=== PATIENT | female | born 1955 | race Caucasian/White ===

== ENCOUNTER 2019-10-23 19:59 | Inpatient (IN) ==
[2019-10-23] MEDS ORDERED: Isovue-370 500 ML BOTTLE IVP ONE (20:33)
[2019-10-23 20:43] LABS: Basophils % 0.1 %; Hematocrit 40.6 % (35.3-44.9); Hemoglobin 12.8 g/dL (11.5-15.4); Immature Granulocytes % 1.1 % (0-4); Lymphocytes # 0.7 K/mcL (0.6-4.6); Lymphocytes % 5.5 %; Mean Corpuscular HGB Conc 31.5 g/dL (31.6-35.5); Mean Corpuscular Hemoglobin 27.9 pg (28.0-33.3); Mean Corpuscular Volume 88.6 fL (83.0-100.0); Monocytes # 0.3 K/mcL (0.0-1.3); Monocytes % 2.4 %; Neutrophils # 11.2 K/mcL (1.6-8.9); Platelet Count 255 K/mcL (140-400); Red Blood Count 4.58 M/mcL (3.82-4.97); Red Cell Distribution Width 15.8 % (11.5-14.5); Segmented Neutrophils % 90.9 %; White Blood Count 12.3 K/mcL (4.3-11.1)
[2019-10-23] MEDS ORDERED: 0.9 % Sodium Chloride 500 ML IVC ONE (20:54)
[2019-10-23 21:08] LABS: BUN/Creatinine Ratio 29 (6-26); Blood Urea Nitrogen 29 mg/dL (8-23); Calcium 9.6 mg/dL (8.6-10.3); Carbon Dioxide 25 mEq/L (23-29); Chloride 101 mEq/L (98-107); Glucose 157 mg/dL (70-105); Osmolality,Calculated 291 (280-300); Potassium 4.2 mEq/L (3.5-5.1); Sodium 136 mEq/L (136-145); Troponin I < 0.03 ng/mL (< 0.04); eGFR For African Americans > 60 (> 60); eGFR For Non-African Americans 55 (> 60)
[2019-10-23] MEDS ORDERED: cefTRIAXone 1,000 MG in Water for inj. (sterile) 10 ML IVP ONE (21:41)
[2019-10-23] MEDS ORDERED: Azithromycin 500 MG in 0.9 % Sodium Chloride 250 ML IVPB ONE (21:41)
[2019-10-23] MEDS ORDERED: Naloxone 0.4 MG/ML INJ IVP PRN (22:13)
[2019-10-23] MEDS ORDERED: Ondansetron ODT 4 MG TAB.RAPDIS SL PRN (22:13)
[2019-10-24] MEDS: levoFLOXacin 750 MG/150 ML 750 MG/150 ML BAG IVPB SCH (01:31)
[2019-10-24] MEDS ORDERED: *HR* OxyCODONE/APAP 10/325 TABLET PO ONE (04:03)
[2019-10-24] MEDS: Pregabalin 50 MG CAPSULE PO SCH ×4 (04:31→22:10)
[2019-10-24] MEDS: *HR* Heparin 5,000 UNIT/ML VIAL SQ SCH ×2 (06:01→16:58)
[2019-10-24] MEDS ORDERED: *HR* Labetalol 20 MG/4 ML SYRINGE IVP ONE (06:07)
[2019-10-24] MEDS ORDERED: *HR* Labetalol 20 MG/4 ML SYRINGE IVP PRN (12:00)
[2019-10-24 12:11] LABS: Bilirubin,Urine Negative (Negative); Blood,Urine Negative (Negative); Clarity,Urine Clear (Clear); Color,Urine Yellow (Yellow); Glucose,Urine (UA) Normal (Normal); Ketones,Urine Negative (Negative); Leukocyte Esterase,Urine Negative (Negative); Nitrite,Urine Positive (Negative); PH,Urine 6.5 pH Units (5.0-8.0); Protein,Urine Negative (Neg-Trace); Urobilinogen,Urine Normal (Normal)
[2019-10-24 12:14] LABS: Bacteria,Urine None Seen per hpf (None-Few); Hyaline Casts,Urine None Seen per lpf (None-Few); RBC,Urine 0-3 per hpf (0-3); Squamous Epithelial Cell,Urine Many per lpf (None-Few); WBC,Urine 0-3 per hpf (0-3)
[2019-10-24] MEDS: *HR* OxyCODONE/APAP 10/325 TABLET PO PRN ×2 (12:59→22:11)
[2019-10-24 16:05] LABS: Basophils % 0.2 %; Eosinophils % 0.2 %; Hemoglobin 12.5 g/dL (11.5-15.4); Lymphocytes # 1.4 K/mcL (0.6-4.6); Mean Corpuscular HGB Conc 31.3 g/dL (31.6-35.5); Mean Corpuscular Volume 89.5 fL (83.0-100.0); Monocytes # 0.6 K/mcL (0.0-1.3); Monocytes % 4.5 %; Neutrophils # 10.3 K/mcL (1.6-8.9); Platelet Count 254 K/mcL (140-400); Red Blood Count 4.47 M/mcL (3.82-4.97); Red Cell Distribution Width 15.9 % (11.5-14.5); Segmented Neutrophils % 83.1 %; White Blood Count 12.5 K/mcL (4.3-11.1)
[2019-10-24 16:26] LABS: Calcium 9.5 mg/dL (8.6-10.3)
[2019-10-24] MEDS: carvediloL 6.25 MG TABLET PO SCH (16:58)
[2019-10-24] MEDS: Morphine Sulfate 2 MG/ML SYRINGE IVP PRN (22:11)
[2019-10-25] MEDS ORDERED: Acetaminophen 325 MG TABLET PO ONE (04:35)
[2019-10-25 04:40] LABS: Basophils % 0.2 %; Eosinophils % 0.3 %; Hematocrit 40.2 % (35.3-44.9); Hemoglobin 13.1 g/dL (11.5-15.4); Immature Granulocytes % 1.2 % (0-4); Lymphocytes # 1.7 K/mcL (0.6-4.6); Lymphocytes % 15.4 %; Mean Corpuscular HGB Conc 32.6 g/dL (31.6-35.5); Mean Corpuscular Hemoglobin 29.3 pg (28.0-33.3); Mean Corpuscular Volume 89.9 fL (83.0-100.0); Mean Platelet Volume 11.6 fL (9.4-12.4); Monocytes # 0.5 K/mcL (0.0-1.3); Monocytes % 4.1 %; Neutrophils # 8.8 K/mcL (1.6-8.9); Platelet Count 242 K/mcL (140-400); Red Blood Count 4.47 M/mcL (3.82-4.97); Red Cell Distribution Width 16.1 % (11.5-14.5); Segmented Neutrophils % 78.8 %; White Blood Count 11.1 K/mcL (4.3-11.1)
[2019-10-25 04:58] LABS: Calcium 9.4 mg/dL (8.6-10.3); Magnesium 1.6 mg/dL (1.6-2.6); Potassium 3.7 mEq/L (3.5-5.1)
[2019-10-25] MEDS: Famotidine 20 MG/2 ML VIAL IVP SCH ×2 (06:39→17:43)
[2019-10-25] MEDS: *HR* Enoxaparin 40 MG/0.4 ML SYRINGE SQ SCH (06:41)
[2019-10-25] MEDS: carvediloL 6.25 MG TABLET PO SCH ×2 (08:04→17:43)
[2019-10-25] MEDS: Pregabalin 50 MG CAPSULE PO SCH ×3 (08:04→22:34)
[2019-10-25] MEDS: *HR* OxyCODONE/APAP 10/325 TABLET PO PRN ×2 (08:05→22:35)
[2019-10-25] MEDS: Morphine Sulfate 2 MG/ML SYRINGE IVP PRN ×2 (11:30→22:35)
[2019-10-25] MEDS: levoFLOXacin 750 MG/150 ML 750 MG/150 ML BAG IVPB SCH (22:34)
[2019-10-26 02:04] LABS: Basophils # 0.1 K/mcL (0.0-0.2); Basophils % 0.6 %; Eosinophils % 0.5 %; Hematocrit 40.8 % (35.3-44.9); Hemoglobin 12.8 g/dL (11.5-15.4); Immature Granulocytes % 1.5 % (0-4); Lymphocytes # 1.4 K/mcL (0.6-4.6); Lymphocytes % 17.1 %; Mean Corpuscular HGB Conc 31.4 g/dL (31.6-35.5); Mean Corpuscular Volume 89.3 fL (83.0-100.0); Mean Platelet Volume 11.6 fL (9.4-12.4); Monocytes # 0.4 K/mcL (0.0-1.3); Monocytes % 4.6 %; Neutrophils # 6.2 K/mcL (1.6-8.9); Platelet Count 180 K/mcL (140-400); Red Blood Count 4.57 M/mcL (3.82-4.97); Segmented Neutrophils % 75.7 %; White Blood Count 8.1 K/mcL (4.3-11.1)
[2019-10-26 02:23] LABS: BUN/Creatinine Ratio 22 (6-26); Blood Urea Nitrogen 21 mg/dL (8-23); Calcium 8.5 mg/dL (8.6-10.3); Carbon Dioxide 26 mEq/L (23-29); Chloride 98 mEq/L (98-107); Glucose 109 mg/dL (70-105); Magnesium 1.4 mg/dL (1.6-2.6); Osmolality,Calculated 288 (280-300); Potassium 3.4 mEq/L (3.5-5.1); Sodium 137 mEq/L (136-145); eGFR For African Americans > 60 (> 60); eGFR For Non-African Americans > 60 (> 60)
[2019-10-26] MEDS: Famotidine 20 MG/2 ML VIAL IVP SCH ×2 (06:08→17:35)
[2019-10-26] MEDS: *HR* OxyCODONE/APAP 10/325 TABLET PO PRN ×2 (06:08→15:37)
[2019-10-26] MEDS: *HR* Enoxaparin 40 MG/0.4 ML SYRINGE SQ SCH (06:09)
[2019-10-26] MEDS: carvediloL 6.25 MG TABLET PO SCH ×2 (09:05→17:35)
[2019-10-26] MEDS: predniSONE 20 MG TABLET PO SCH (09:06)
[2019-10-26] MEDS: Pregabalin 50 MG CAPSULE PO SCH ×3 (09:06→20:49)
[2019-10-26] MEDS ORDERED: Aminoglycoside Consult 1 EACH MC ONE (15:12)
[2019-10-26] MEDS ORDERED: Furosemide 40 MG TABLET PO PRN (17:49)
[2019-10-26] MEDS: Morphine Sulfate 2 MG/ML SYRINGE IVP PRN (19:35)
[2019-10-26] MEDS: Baclofen 10 MG TABLET PO SCH (20:49)
[2019-10-26] MEDS: Sucralfate 1 GM TABLET PO SCH (20:49)
[2019-10-26] MEDS ORDERED: Latanoprost 2.5 ML BOTTLE BOTH EYES SCH (21:00)
[2019-10-26] MEDS: Ammonium Lactate 30 APPL/225 GM BOTTLE TP SCH (21:37)
[2019-10-27 01:17] LABS: Basophils % 0.4 %; Hematocrit 36.2 % (35.3-44.9); Hemoglobin 11.6 g/dL (11.5-15.4); Immature Granulocytes % 2.7 % (0-4); Lymphocytes # 0.8 K/mcL (0.6-4.6); Lymphocytes % 11.6 %; Mean Corpuscular Hemoglobin 28.4 pg (28.0-33.3); Mean Corpuscular Volume 88.7 fL (83.0-100.0); Mean Platelet Volume 10.7 fL (9.4-12.4); Monocytes # 0.3 K/mcL (0.0-1.3); Monocytes % 4.8 %; Neutrophils # 5.7 K/mcL (1.6-8.9); Platelet Count 202 K/mcL (140-400); Red Blood Count 4.08 M/mcL (3.82-4.97); Red Cell Distribution Width 15.7 % (11.5-14.5); Segmented Neutrophils % 80.5 %; White Blood Count 7.1 K/mcL (4.3-11.1)
[2019-10-27 01:38] LABS: BUN/Creatinine Ratio 23 (6-26); Blood Urea Nitrogen 25 mg/dL (8-23); Calcium 8.5 mg/dL (8.6-10.3); Carbon Dioxide 25 mEq/L (23-29); Chloride 101 mEq/L (98-107); Glucose 185 mg/dL (70-105); Magnesium 1.8 mg/dL (1.6-2.6); Osmolality,Calculated 291 (280-300); Potassium 3.8 mEq/L (3.5-5.1); Sodium 136 mEq/L (136-145); eGFR For African Americans > 60 (> 60); eGFR For Non-African Americans 52 (> 60)
[2019-10-27] MEDS: Sucralfate 1 GM TABLET PO SCH (07:50)
[2019-10-27] MEDS: carvediloL 6.25 MG TABLET PO SCH (07:50)
[2019-10-27] MEDS: Pregabalin 50 MG CAPSULE PO SCH (07:50)
[2019-10-27] MEDS: predniSONE 20 MG TABLET PO SCH (07:50)
[2019-10-27] MEDS: Baclofen 10 MG TABLET PO SCH (07:50)
[2019-10-27] MEDS: *HR* Enoxaparin 40 MG/0.4 ML SYRINGE SQ SCH (07:50)
[2019-10-27] MEDS ORDERED: Cholecalciferol (D-3) 1,000 UNIT (25MCG) TABLET PO SCH (09:00)
[2019-10-27] MEDS: Ammonium Lactate 30 APPL/225 GM BOTTLE TP SCH (11:07)
[2019-10-27 11:59] VITALS: BP 122/74
== END 2019-10-27 15:13 | disposition home or self-care (01) | DRG 194 ==
LOC: EMEROOARM 19:59 → 2NENU 19:59 → SUATTDRO 22:08 → 2NENU 23:07 → 2ANU 10-25 19:56
PROVIDERS: ADMIT Student in an Organized Health Care Education/Training Program; ATTEND Pharmacist

== ENCOUNTER 2020-03-29 09:46 | Inpatient (IN) ==
[2020-03-29] MEDS ORDERED: 0.9 % Sodium Chloride 500 ML IVC ONE (09:48)
[2020-03-29 10:26] LABS: Basophils % 0.2 %; Eosinophils % 0.2 %; Hematocrit 37.8 % (35.3-44.9); Hemoglobin 12.4 g/dL (11.5-15.4); Immature Granulocytes % 0.6 % (0-4); Lymphocytes # 1.2 K/mcL (0.6-4.6); Lymphocytes % 9.8 %; Mean Corpuscular HGB Conc 32.8 g/dL (31.6-35.5); Mean Corpuscular Hemoglobin 30.8 pg (28.0-33.3); Mean Platelet Volume 12.2 fL (9.4-12.4); Monocytes # 0.5 K/mcL (0.0-1.3); Monocytes % 3.6 %; Neutrophils # 10.7 K/mcL (1.6-8.9); Platelet Count 217 K/mcL (140-400); Red Blood Count 4.02 M/mcL (3.82-4.97); Red Cell Distribution Width 16.5 % (11.5-14.5); Segmented Neutrophils % 85.6 %; White Blood Count 12.5 K/mcL (4.3-11.1)
[2020-03-29 10:37] LABS: INR 0.9; Prothrombin Time 10.2 Seconds (9.4-12.1)
[2020-03-29 10:40] LABS: Activated Partial Thrombo Time 25.6 Seconds (26.0-36.0)
[2020-03-29 10:44] LABS: Alanine Aminotransferase 24 Units/L (7-52); Albumin 3.7 g/dL (3.5-5.7); Albumin/Globulin Ratio 1.5 (1.1-2.2); Alkaline Phosphatase 51 Units/L (34-104); Aspartate Amino Transferase 16 Units/L (13-39); BUN/Creatinine Ratio 24 (6-26); Bilirubin,Direct 0.1 mg/dL (0.0-0.2); Bilirubin,Indirect 0.4 mg/dL (0.0-1.0); Bilirubin,Total 0.5 mg/dL (0.3-1.0); Blood Urea Nitrogen 84 mg/dL (8-23); Calcium 8.6 mg/dL (8.6-10.3); Carbon Dioxide 24 mEq/L (23-29); Chloride 98 mEq/L (98-107); Globulin 2.4 g/dL (2.4-3.5); Glucose 129 mg/dL (70-105); Lipase 69 Units/L (11-82); Osmolality,Calculated 313 (280-300); Potassium 4.3 mEq/L (3.5-5.1); Sodium 138 mEq/L (136-145); Total Protein 6.1 g/dL (6.4-8.9); Troponin I < 0.03 ng/mL (< 0.04); eGFR For African Americans 16 (> 60); eGFR For Non-African Americans 13 (> 60)
[2020-03-29 11:24] LABS: Bilirubin,Urine Negative (Negative); Blood,Urine Trace (Negative); Clarity,Urine Clear (Clear); Color,Urine Light-Yellow (Yellow); Glucose,Urine (UA) Normal (Normal); Hyaline Casts,Urine Few per lpf (None Seen); Ketones,Urine Negative (Negative); Leukocyte Esterase,Urine Negative (Negative); Mucus,Urine Few per lpf (None-Few); Nitrite,Urine Negative (Negative); Protein,Urine Trace mg/dL (Neg-Trace); RBC,Urine 0-3 per hpf (0-3); Specific Gravity,Urine 1.015 (1.010-1.025); Squamous Epithelial Cell,Urine Few per hpf (None-Few); Urobilinogen,Urine Normal (Normal); WBC,Urine 0-3 per hpf (0-3)
[2020-03-29 11:30] LABS: Amphetamine Screen,Urine Negative ng/mL (Cutoff=1000); Barbiturate Screen,Urine Negative ng/mL (Cutoff=200); Benzodiazepines Screen,Urine Negative ng/mL (Cutoff=200); Cannabinoid Screen,Urine Negative ng/mL (Cutoff = 50); Cocaine Screen,Urine Negative ng/mL (Cutoff= 300); Opiate Screen,Urine Negative ng/mL (Cutoff=300); Phencyclidine Screen,Urine Negative ng/mL (Cutoff=25)
[2020-03-29] MEDS ORDERED: 0.9 % Sodium Chloride 1,000 ML IVC ONE (11:31)
[2020-03-29] MEDS ORDERED: Naloxone 0.4 MG/ML INJ IVP PRN (11:38)
[2020-03-29] MEDS ORDERED: Ondansetron 4 MG/2 ML VIAL IVP PRN (11:38)
[2020-03-29] MEDS ORDERED: Aspirin 81 MG TAB.CHEW PO ONE (11:46)
[2020-03-29] MEDS ORDERED: Albuterol 2.5 MG/3 ML NEBULIZER IH PRN (12:23)
[2020-03-29 14:32] LABS: ABG Base Excess 1 mEq/L (-2 to 3); ABG HCO3 25 mEq/L (21-27); ABG Oxygen Saturation 97 % (95-98); ABG PCO2 34 mmHg (35-45); ABG PH 7.47 pH Units (7.32-7.45); ABG PO2 87 mmHg (85-104); ABG TCO2 26 mEq/L (20-26)
[2020-03-29] MEDS: 0.9 % Sodium Chloride 1,000 ML IVC SCH (15:03)
[2020-03-29] MEDS: *HR* OxyCODONE Immed Rel 5 MG TABLET PO PRN ×2 (15:04→22:52)
[2020-03-29] MEDS ORDERED: Haloperidol Lactate 5 MG/ML VIAL IVP ONE (16:15)
[2020-03-29] MEDS: *HR* Heparin 5,000 UNIT/ML VIAL SQ SCH (17:21)
[2020-03-29 18:36] LABS: Potassium,Urine 26.2 mEq/L
[2020-03-29] MEDS: Doxycycline 100 MG in 0.9 % Sodium Chloride Mini Bag 100 ML IVPB SCH (19:11)
[2020-03-30] MEDS: *HR* Heparin 5,000 UNIT/ML VIAL SQ SCH ×2 (05:45→16:10)
[2020-03-30 06:00] LABS: Basophils % 0.2 %; Eosinophils % 0.4 %; Hematocrit 35.9 % (35.3-44.9); Hemoglobin 11.3 g/dL (11.5-15.4); Immature Granulocytes % 0.7 % (0-4); Lymphocytes % 23.4 %; Mean Corpuscular HGB Conc 31.5 g/dL (31.6-35.5); Mean Corpuscular Hemoglobin 30.1 pg (28.0-33.3); Mean Corpuscular Volume 95.5 fL (83.0-100.0); Mean Platelet Volume 11.7 fL (9.4-12.4); Monocytes # 0.5 K/mcL (0.0-1.3); Monocytes % 5.6 %; Neutrophils # 5.8 K/mcL (1.6-8.9); Nucleated Red Blood Cells 0.2 /100 WBC (0); Platelet Count 173 K/mcL (140-400); Red Blood Count 3.76 M/mcL (3.82-4.97); Red Cell Distribution Width 16.5 % (11.5-14.5); Segmented Neutrophils % 69.7 %; White Blood Count 8.4 K/mcL (4.3-11.1)
[2020-03-30 06:16] LABS: Calcium 8.5 mg/dL (8.6-10.3); Magnesium 2.1 mg/dL (1.6-2.6); Phosphorous 2.9 mg/dL (2.7-4.5); Potassium 3.4 mEq/L (3.5-5.1); Uric Acid 15.9 mg/dL (2.3-7.6)
[2020-03-30] MEDS: 0.9 % Sodium Chloride 1,000 ML IVC SCH (06:32)
[2020-03-30] MEDS: Doxycycline 100 MG in 0.9 % Sodium Chloride Mini Bag 100 ML IVPB SCH (06:32)
[2020-03-30] MEDS: *HR* OxyCODONE Immed Rel 5 MG TABLET PO PRN ×3 (08:02→23:10)
[2020-03-30] MEDS: Sucralfate 1 GM TABLET PO SCH ×2 (09:39→19:36)
[2020-03-30] MEDS: Cholecalciferol (D-3) 1,000 UNIT (25MCG) TABLET PO SCH (09:39)
[2020-03-30] MEDS: predniSONE 20 MG TABLET PO SCH (09:39)
[2020-03-30] MEDS: Pregabalin 50 MG CAPSULE PO SCH ×3 (09:40→19:37)
[2020-03-30] MEDS: *HR* LORazepam 1 MG TABLET PO PRN ×2 (09:41→16:11)
[2020-03-30] MEDS: Metoprolol XL (24 HR) Succ 50 MG TAB.ER.24H PO SCH (10:44)
[2020-03-30] MEDS: Ammonium Lactate 30 APPL/225 GM BOTTLE TP SCH ×2 (10:46→20:23)
[2020-03-30] MEDS: Cyclosporine [Restasis] 1 DROP OP SCH ×2 (13:10→19:37)
[2020-03-30] MEDS: Amoxicillin/Clavulanate 500 MG TABLET PO SCH (16:10)
[2020-03-30] MEDS ORDERED: carvediloL 6.25 MG TABLET PO SCH (17:00)
[2020-03-30] MEDS: Latanoprost 2.5 ML BOTTLE BOTH EYES SCH (19:38)
[2020-03-30] MEDS ORDERED: ESZOPICLONE 3 MG PO SCH (21:00)
[2020-03-31 04:29] LABS: Hematocrit 32.6 % (35.3-44.9); Hemoglobin 10.1 g/dL (11.5-15.4); Mean Corpuscular Hemoglobin 30.7 pg (28.0-33.3); Mean Corpuscular Volume 99.1 fL (83.0-100.0); Mean Platelet Volume 11.6 fL (9.4-12.4); Platelet Count 157 K/mcL (140-400); Red Blood Count 3.29 M/mcL (3.82-4.97); Red Cell Distribution Width 16.5 % (11.5-14.5); White Blood Count 5.9 K/mcL (4.3-11.1)
[2020-03-31] MEDS: *HR* Heparin 5,000 UNIT/ML VIAL SQ SCH ×2 (05:00→18:17)
[2020-03-31 05:02] LABS: BUN/Creatinine Ratio 29 (6-26); Blood Urea Nitrogen 24 mg/dL (8-23); Calcium 8.4 mg/dL (8.6-10.3); Carbon Dioxide 25 mEq/L (23-29); Chloride 105 mEq/L (98-107); Glucose 122 mg/dL (70-105); Magnesium 1.8 mg/dL (1.6-2.6); Osmolality,Calculated 291 (280-300); Phosphorous 1.5 mg/dL (2.7-4.5); Potassium 4.3 mEq/L (3.5-5.1); Sodium 138 mEq/L (136-145); eGFR For African Americans > 60 (> 60); eGFR For Non-African Americans > 60 (> 60)
[2020-03-31] MEDS: Sucralfate 1 GM TABLET PO SCH ×2 (08:53→20:54)
[2020-03-31] MEDS: Pregabalin 50 MG CAPSULE PO SCH ×3 (08:53→20:55)
[2020-03-31] MEDS: Cholecalciferol (D-3) 1,000 UNIT (25MCG) TABLET PO SCH (08:53)
[2020-03-31] MEDS: predniSONE 20 MG TABLET PO SCH (08:53)
[2020-03-31] MEDS: Amoxicillin/Clavulanate 500 MG TABLET PO SCH (08:54)
[2020-03-31] MEDS: Metoprolol XL (24 HR) Succ 50 MG TAB.ER.24H PO SCH (08:54)
[2020-03-31] MEDS: Cyclosporine [Restasis] 1 DROP OP SCH (08:55)
[2020-03-31] MEDS: Ammonium Lactate 30 APPL/225 GM BOTTLE TP SCH ×2 (08:56→20:54)
[2020-03-31] MEDS ORDERED: *HR* Methotrexate 2.5 MG TABLET PO SCH (09:00)
[2020-03-31] MEDS: *HR* OxyCODONE Immed Rel 5 MG TABLET PO PRN ×2 (10:01→18:23)
[2020-03-31] MEDS ORDERED: Artificial Tears SOLN 15 ML BOTTLE OP PRN (10:22)
[2020-03-31] MEDS: Latanoprost 2.5 ML BOTTLE BOTH EYES SCH (20:54)
[2020-04-01 02:21] LABS: % Iron Saturation 23 % (15-50); BUN/Creatinine Ratio 23 (6-26); Blood Urea Nitrogen 22 mg/dL (8-23); Carbon Dioxide 25 mEq/L (23-29); Chloride 104 mEq/L (98-107); Glucose 110 mg/dL (70-105); Iron 80 mcg/dL (50-170); Magnesium 1.8 mg/dL (1.6-2.6); Osmolality,Calculated 290 (280-300); Phosphorous 1.8 mg/dL (2.7-4.5); Potassium 4.8 mEq/L (3.5-5.1); Sodium 138 mEq/L (136-145); Transferrin 250 mg/dL (203-362); eGFR For African Americans > 60 (> 60); eGFR For Non-African Americans > 60 (> 60)
[2020-04-01 02:35] LABS: Ferritin 104 ng/mL (10-120)
[2020-04-01 02:40] LABS: Folate 18.9 ng/mL (3.0-16.0)
[2020-04-01 03:38] LABS: Procalcitonin 0.07 ng/mL (0.00-0.15)
[2020-04-01] MEDS: *HR* Heparin 5,000 UNIT/ML VIAL SQ SCH ×2 (04:16→16:32)
[2020-04-01] MEDS: *HR* OxyCODONE Immed Rel 5 MG TABLET PO PRN ×3 (04:16→22:33)
[2020-04-01 04:41] LABS: Hematocrit 35.9 % (35.3-44.9); Hemoglobin 11.6 g/dL (11.5-15.4); Red Blood Count 3.74 M/mcL (3.82-4.97); White Blood Count 7.4 K/mcL (4.3-11.1)
[2020-04-01 04:42] LABS: Mean Corpuscular HGB Conc 32.3 g/dL (31.6-35.5); Mean Platelet Volume 12.4 fL (9.4-12.4); Platelet Count 187 K/mcL (140-400)
[2020-04-01] MEDS: predniSONE 20 MG TABLET PO SCH (09:39)
[2020-04-01] MEDS: Sucralfate 1 GM TABLET PO SCH ×2 (09:39→21:06)
[2020-04-01] MEDS: Folic Acid 1 MG TABLET PO SCH (09:39)
[2020-04-01] MEDS: Metoprolol XL (24 HR) Succ 50 MG TAB.ER.24H PO SCH (09:40)
[2020-04-01] MEDS: Cholecalciferol (D-3) 1,000 UNIT (25MCG) TABLET PO SCH (09:40)
[2020-04-01] MEDS: Pregabalin 50 MG CAPSULE PO SCH ×3 (09:40→21:07)
[2020-04-01] MEDS: Ammonium Lactate 30 APPL/225 GM BOTTLE TP SCH ×2 (09:41→21:06)
[2020-04-01] MEDS: Latanoprost 2.5 ML BOTTLE BOTH EYES SCH (21:07)
[2020-04-01] MEDS: *HR* LORazepam 1 MG TABLET PO PRN (22:33)
[2020-04-02] MEDS: *HR* Heparin 5,000 UNIT/ML VIAL SQ SCH ×2 (05:45→17:21)
[2020-04-02] MEDS: Pregabalin 50 MG CAPSULE PO SCH ×3 (09:14→20:02)
[2020-04-02] MEDS: Folic Acid 1 MG TABLET PO SCH (09:14)
[2020-04-02] MEDS: Cholecalciferol (D-3) 1,000 UNIT (25MCG) TABLET PO SCH (09:15)
[2020-04-02] MEDS: Metoprolol XL (24 HR) Succ 50 MG TAB.ER.24H PO SCH (09:15)
[2020-04-02] MEDS: predniSONE 20 MG TABLET PO SCH (09:15)
[2020-04-02] MEDS: Sucralfate 1 GM TABLET PO SCH ×2 (09:15→20:02)
[2020-04-02] MEDS: Ammonium Lactate 30 APPL/225 GM BOTTLE TP SCH ×2 (09:22→20:02)
[2020-04-02 10:18] LABS: Hematocrit 35.1 % (35.3-44.9); Hemoglobin 11.2 g/dL (11.5-15.4); Mean Corpuscular HGB Conc 31.9 g/dL (31.6-35.5); Mean Corpuscular Hemoglobin 30.4 pg (28.0-33.3); Mean Corpuscular Volume 95.4 fL (83.0-100.0); Mean Platelet Volume 12.1 fL (9.4-12.4); Platelet Count 179 K/mcL (140-400); Red Blood Count 3.68 M/mcL (3.82-4.97); Red Cell Distribution Width 15.9 % (11.5-14.5); White Blood Count 6.1 K/mcL (4.3-11.1)
[2020-04-02 10:34] LABS: BUN/Creatinine Ratio 19 (6-26); Blood Urea Nitrogen 18 mg/dL (8-23); Calcium 9.2 mg/dL (8.6-10.3); Carbon Dioxide 28 mEq/L (23-29); Chloride 102 mEq/L (98-107); Glucose 100 mg/dL (70-105); Magnesium 1.6 mg/dL (1.6-2.6); Osmolality,Calculated 288 (280-300); Phosphorous 2.5 mg/dL (2.7-4.5); Potassium 4.1 mEq/L (3.5-5.1); Sodium 138 mEq/L (136-145); eGFR For African Americans > 60 (> 60); eGFR For Non-African Americans 59 (> 60)
[2020-04-02] MEDS: *HR* OxyCODONE Immed Rel 5 MG TABLET PO PRN (14:01)
[2020-04-02] MEDS: Latanoprost 2.5 ML BOTTLE BOTH EYES SCH (21:40)
[2020-04-03 03:25] LABS: Hematocrit 32.7 % (35.3-44.9); Hemoglobin 10.7 g/dL (11.5-15.4); Mean Corpuscular HGB Conc 32.7 g/dL (31.6-35.5); Mean Corpuscular Hemoglobin 31.3 pg (28.0-33.3); Mean Corpuscular Volume 95.6 fL (83.0-100.0); Mean Platelet Volume 12.1 fL (9.4-12.4); Platelet Count 191 K/mcL (140-400); Red Blood Count 3.42 M/mcL (3.82-4.97); Red Cell Distribution Width 15.8 % (11.5-14.5); White Blood Count 6.3 K/mcL (4.3-11.1)
[2020-04-03 03:35] LABS: BUN/Creatinine Ratio 21 (6-26); Blood Urea Nitrogen 21 mg/dL (8-23); Calcium 8.8 mg/dL (8.6-10.3); Carbon Dioxide 25 mEq/L (23-29); Chloride 103 mEq/L (98-107); Glucose 105 mg/dL (70-105); Magnesium 2.2 mg/dL (1.6-2.6); Osmolality,Calculated 287 (280-300); Phosphorous 3.9 mg/dL (2.7-4.5); Potassium 4.4 mEq/L (3.5-5.1); Sodium 137 mEq/L (136-145); eGFR For African Americans > 60 (> 60); eGFR For Non-African Americans 57 (> 60)
[2020-04-03] MEDS: *HR* Heparin 5,000 UNIT/ML VIAL SQ SCH ×2 (05:43→16:21)
[2020-04-03] MEDS: Ammonium Lactate 30 APPL/225 GM BOTTLE TP SCH ×2 (09:43→21:55)
[2020-04-03] MEDS: Folic Acid 1 MG TABLET PO SCH (09:44)
[2020-04-03] MEDS: Pregabalin 50 MG CAPSULE PO SCH ×3 (09:44→21:50)
[2020-04-03] MEDS: Sucralfate 1 GM TABLET PO SCH ×2 (09:44→21:50)
[2020-04-03] MEDS: predniSONE 20 MG TABLET PO SCH (09:45)
[2020-04-03] MEDS: Metoprolol XL (24 HR) Succ 50 MG TAB.ER.24H PO SCH (09:46)
[2020-04-03] MEDS: Cholecalciferol (D-3) 1,000 UNIT (25MCG) TABLET PO SCH (09:47)
[2020-04-03] MEDS: *HR* OxyCODONE Immed Rel 5 MG TABLET PO PRN ×2 (10:07→16:20)
[2020-04-03] MEDS ORDERED: FLU Vac QV 20-21 (6Month+)/PF 0.5 ML SYRINGE IM ONE (14:26)
[2020-04-03] MEDS: Latanoprost 2.5 ML BOTTLE BOTH EYES SCH (21:52)
[2020-04-04] MEDS: *HR* Heparin 5,000 UNIT/ML VIAL SQ SCH ×2 (05:26→17:25)
[2020-04-04] MEDS: Pregabalin 50 MG CAPSULE PO SCH ×3 (08:28→20:15)
[2020-04-04] MEDS: *HR* OxyCODONE Immed Rel 5 MG TABLET PO PRN ×2 (08:28→17:21)
[2020-04-04] MEDS: Folic Acid 1 MG TABLET PO SCH (08:28)
[2020-04-04] MEDS: Sucralfate 1 GM TABLET PO SCH ×2 (08:29→20:14)
[2020-04-04] MEDS: Ammonium Lactate 30 APPL/225 GM BOTTLE TP SCH ×2 (08:29→20:17)
[2020-04-04] MEDS: Metoprolol XL (24 HR) Succ 50 MG TAB.ER.24H PO SCH (08:29)
[2020-04-04] MEDS: Cholecalciferol (D-3) 1,000 UNIT (25MCG) TABLET PO SCH (08:29)
[2020-04-04] MEDS: predniSONE 20 MG TABLET PO SCH (08:29)
[2020-04-04] MEDS: Latanoprost 2.5 ML BOTTLE BOTH EYES SCH (20:16)
[2020-04-05] MEDS: *HR* OxyCODONE Immed Rel 5 MG TABLET PO PRN ×3 (00:15→14:04)
[2020-04-05 05:19] LABS: Adenovirus Not Detected (Not Detect); Bordetella Pertussis Not Detected (Not Detect); Chlamydophila pneumoniae Not Detected (Not Detect); Coronavirus 229E Not Detected (Not Detect); Coronavirus HKU1 Not Detected (Not Detect); Coronavirus NL63 Not Detected (Not Detect); Coronavirus OC43 Not Detected (Not Detect); Human Metapneumovirus Not Detected (Not Detect); Human Rhinovirus/Enterovirus Not Detected (Not Detect); Influenza A Subtype 2009 H1 Not Detected (Not Detect); Influenza B Not Detected (Not Detect); Mycoplasma pneumoniae Not Detected (Not Detect); Parainfluenza Virus 1 Not Detected (Not Detect); Parainfluenza Virus 2 Not Detected (Not Detect); Parainfluenza Virus 3 Not Detected (Not Detect); Parainfluenza Virus 4 Not Detected (Not Detect); Respiratory Syncytial Virus Not Detected (Not Detect); SARS-CoV-2 Not Detected (Not Detect)
[2020-04-05] MEDS: *HR* Heparin 5,000 UNIT/ML VIAL SQ SCH (05:43)
[2020-04-05] MEDS ORDERED: Menthol 9.1 MG LOZENGE PO PRN (08:38)
[2020-04-05 08:47] LABS: Hematocrit 34.4 % (35.3-44.9); Mean Corpuscular Hemoglobin 30.6 pg (28.0-33.3); Mean Corpuscular Volume 95.6 fL (83.0-100.0); Mean Platelet Volume 11.5 fL (9.4-12.4); Platelet Count 210 K/mcL (140-400); Red Cell Distribution Width 15.9 % (11.5-14.5); White Blood Count 6.9 K/mcL (4.3-11.1)
[2020-04-05] MEDS: Metoprolol XL (24 HR) Succ 50 MG TAB.ER.24H PO SCH (08:59)
[2020-04-05] MEDS: Sucralfate 1 GM TABLET PO SCH (08:59)
[2020-04-05] MEDS: Cholecalciferol (D-3) 1,000 UNIT (25MCG) TABLET PO SCH (08:59)
[2020-04-05] MEDS: Folic Acid 1 MG TABLET PO SCH (09:00)
[2020-04-05] MEDS: predniSONE 20 MG TABLET PO SCH (09:00)
[2020-04-05] MEDS ORDERED: methylPREDNISolone 125 MG/2 ML VIAL IVP ONE (09:00)
[2020-04-05] MEDS: Pregabalin 50 MG CAPSULE PO SCH ×2 (09:00→14:04)
[2020-04-05 09:06] LABS: BUN/Creatinine Ratio 22 (6-26); Blood Urea Nitrogen 23 mg/dL (8-23); Calcium 9.1 mg/dL (8.6-10.3); Carbon Dioxide 26 mEq/L (23-29); Chloride 106 mEq/L (98-107); Glucose 90 mg/dL (70-105); Osmolality,Calculated 287 (280-300); Potassium 4.1 mEq/L (3.5-5.1); Sodium 137 mEq/L (136-145); eGFR For African Americans > 60 (> 60); eGFR For Non-African Americans 54 (> 60)
[2020-04-05] MEDS ORDERED: Fluconazole 200 MG/100 ML 200 MG/100 ML BAG IVPB ONE (10:22)
[2020-04-05] MEDS: Ammonium Lactate 30 APPL/225 GM BOTTLE TP SCH (10:38)
[2020-04-05 11:13] VITALS: BP 102/61
[2020-04-05] MEDS ORDERED: FLU Vac QV 20-21 (6Month+)/PF 0.5 ML SYRINGE IM ONE (11:20)
[2020-04-05] MEDS ORDERED: Magic Mouthwash 10 ML UD Cup PO SCH (11:30)
[2020-04-06] MEDS ORDERED: Fluconazole 200 MG/100 ML 200 MG/100 ML BAG IVPB ONE (10:00)
== END 2020-04-05 14:24 | disposition other institution (70) | DRG 193 ==
LOC: 2ANU 09:46 → EMEROOARM 09:46 → SUATTDRO 12:14 → 2ANU 12:33 → SUATTDRO 03-30 17:08
PROVIDERS: ADMIT Internal Medicine; ATTEND Pharmacist

== ENCOUNTER 2020-04-17 07:27 | Inpatient (IN) ==
[2020-04-17] MEDS ORDERED: Piperacillin/Tazobactam 3.375 GM in 0.9 % Sodium Chloride Mini Bag 100 ML IVPB ONE (07:52)
[2020-04-17 07:55] LABS: VBG HCO3 22 mEq/L (21-27); VBG PCO2 37 mmHg (41-51); VBG PH 7.38 pH Units (7.32-7.42); VBG PO2 57 mmHg (25-50)
[2020-04-17 08:00] LABS: Prothrombin Time 11.6 Seconds (9.4-12.1)
[2020-04-17 08:19] LABS: Activated Partial Thrombo Time 16.6 Seconds (26.0-36.0)
[2020-04-17] MEDS ORDERED: Dexamethasone 4 MG/ML VIAL IVP STA (08:41)
[2020-04-17 08:43] LABS: Hematocrit 31.6 % (35.3-44.9); Immature Granulocytes % 0.5 % (0-4); Lymphocytes # 0.2 K/mcL (0.6-4.6); Lymphocytes % 5.5 %; Mean Corpuscular HGB Conc 31.3 g/dL (31.6-35.5); Mean Corpuscular Volume 99.1 fL (83.0-100.0); Mean Platelet Volume 10.2 fL (9.4-12.4); Monocytes % 0.9 %; Neutrophils # 4.1 K/mcL (1.6-8.9); Nucleated Red Blood Cells 0.9 /100 WBC (0); Platelet Count 272 K/mcL (140-400); Red Blood Count 3.19 M/mcL (3.82-4.97); Red Cell Distribution Width 17.3 % (11.5-14.5); Segmented Neutrophils % 93.1 %; White Blood Count 4.4 K/mcL (4.3-11.1)
[2020-04-17 08:47] LABS: Hemoglobin 9.9 g/dL (11.5-15.4)
[2020-04-17 08:51] LABS: Bilirubin,Urine Negative (Negative); Blood,Urine Negative (Negative); Budding Yeast,Urine Many per hpf (None Seen); Clarity,Urine Turbid (Clear); Color,Urine Light-Yellow (Yellow); Glucose,Urine (UA) Normal (Normal); Hyaline Casts,Urine Few per lpf (None Seen); Ketones,Urine Negative (Negative); Leukocyte Esterase,Urine Negative (Negative); Mucus,Urine Few per lpf (None-Few); Nitrite,Urine Negative (Negative); PH,Urine 5.5 pH Units (5.0-8.0); Protein,Urine Trace mg/dL (Neg-Trace); RBC,Urine 0-3 per hpf (0-3); Specific Gravity,Urine 1.015 (1.010-1.025); Urobilinogen,Urine Normal (Normal); WBC,Urine 0-3 per hpf (0-3)
[2020-04-17] MEDS ORDERED: Acetaminophen 325 MG TABLET PO PRN (09:18)
[2020-04-17] MEDS ORDERED: Ondansetron 4 MG/2 ML VIAL IVP PRN (09:18)
[2020-04-17 09:30] LABS: Alanine Aminotransferase 79 Units/L (7-52); Albumin 2.9 g/dL (3.5-5.7); Albumin/Globulin Ratio 1.1 (1.1-2.2); Alkaline Phosphatase 58 Units/L (34-104); Aspartate Amino Transferase 79 Units/L (13-39); BUN/Creatinine Ratio 30 (6-26); Bilirubin,Direct 0.1 mg/dL (0.0-0.2); Bilirubin,Indirect 0.2 mg/dL (0.0-1.0); Bilirubin,Total 0.3 mg/dL (0.3-1.0); Blood Urea Nitrogen 35 mg/dL (8-23); C-Reactive Protein > 300 mg/L (Less than 10); Calcium 7.9 mg/dL (8.6-10.3); Carbon Dioxide 22 mEq/L (23-29); Chloride 108 mEq/L (98-107); Ferritin 630 ng/mL (10-120); Globulin 2.7 g/dL (2.4-3.5); Glucose 119 mg/dL (70-105); Lactate Dehydrogenase 555 Units/L (140-271); Magnesium 2.2 mg/dL (1.6-2.6); Osmolality,Calculated 305 (280-300); Phosphorous 4.8 mg/dL (2.7-4.5); Potassium 4.5 mEq/L (3.5-5.1); Sodium 143 mEq/L (136-145); Total Protein 5.6 g/dL (6.4-8.9); eGFR For African Americans 56 (> 60); eGFR For Non-African Americans 46 (> 60)
[2020-04-17] MEDS: Furosemide 20 MG/2 ML VIAL IVP SCH (12:01)
[2020-04-17] MEDS: *HR* OxyCODONE/APAP 10/325 TABLET PO PRN ×2 (14:49→23:37)
[2020-04-17] MEDS: *HR* Heparin 5,000 UNIT/ML VIAL SQ SCH (17:35)
[2020-04-17] MEDS: Piperacillin/Tazobactam 3.375 GM in 0.9 % Sodium Chloride Mini Bag 100 ML IVPB SCH (17:35)
[2020-04-18] MEDS: Piperacillin/Tazobactam 3.375 GM in 0.9 % Sodium Chloride Mini Bag 100 ML IVPB SCH ×3 (01:55→17:08)
[2020-04-18] MEDS: *HR* Heparin 5,000 UNIT/ML VIAL SQ SCH ×2 (04:42→17:07)
[2020-04-18 06:07] LABS: Hematocrit 36.6 % (35.3-44.9); Hemoglobin 11.1 g/dL (11.5-15.4); Mean Corpuscular HGB Conc 30.3 g/dL (31.6-35.5); Mean Corpuscular Hemoglobin 31.1 pg (28.0-33.3); Mean Corpuscular Volume 102.5 fL (83.0-100.0); Mean Platelet Volume 10.1 fL (9.4-12.4); Platelet Count 285 K/mcL (140-400); Red Blood Count 3.57 M/mcL (3.82-4.97); Red Cell Distribution Width 17.4 % (11.5-14.5); White Blood Count 3.8 K/mcL (4.3-11.1)
[2020-04-18 06:31] LABS: Calcium 8.1 mg/dL (8.6-10.3); Magnesium 2.5 mg/dL (1.6-2.6); Potassium 4.9 mEq/L (3.5-5.1); Troponin I 0.2 ng/mL (< 0.04)
[2020-04-18] MEDS: Furosemide 20 MG/2 ML VIAL IVP SCH (08:44)
[2020-04-18] MEDS: Metoprolol XL (24 HR) Succ 50 MG TAB.ER.24H PO SCH (08:44)
[2020-04-18] MEDS: Dexamethasone 4 MG/ML VIAL IVP SCH (08:45)
[2020-04-18] MEDS: *HR* OxyCODONE/APAP 10/325 TABLET PO PRN ×2 (08:59→18:05)
[2020-04-18] MEDS: Dexmedetomidine HCl 400 MCG/100 ML MLS IVC SCH (15:06)
[2020-04-18] MEDS ORDERED: 0.9 % Sodium Chloride 500 ML ONE (23:21)
[2020-04-19] MEDS: *HR* OxyCODONE/APAP 10/325 TABLET PO PRN ×3 (00:24→12:08)
[2020-04-19] MEDS: Piperacillin/Tazobactam 3.375 GM in 0.9 % Sodium Chloride Mini Bag 100 ML IVPB SCH ×2 (02:45→09:10)
[2020-04-19 05:38] LABS: BUN/Creatinine Ratio 49 (6-26); Blood Urea Nitrogen 49 mg/dL (8-23); Carbon Dioxide 21 mEq/L (23-29); Chloride 105 mEq/L (98-107); Glucose 109 mg/dL (70-105); Osmolality,Calculated 304 (280-300); Potassium 4.3 mEq/L (3.5-5.1); Sodium 140 mEq/L (136-145); eGFR For African Americans > 60 (> 60); eGFR For Non-African Americans 55 (> 60)
[2020-04-19] MEDS: *HR* Heparin 5,000 UNIT/ML VIAL SQ SCH ×2 (06:08→17:00)
[2020-04-19 06:10] LABS: Hematocrit 32.1 % (35.3-44.9); Hemoglobin 9.7 g/dL (11.5-15.4); Immature Granulocytes % 0.9 % (0-4); Lymphocytes # 0.2 K/mcL (0.6-4.6); Lymphocytes % 5.2 %; Mean Corpuscular HGB Conc 30.2 g/dL (31.6-35.5); Mean Corpuscular Hemoglobin 29.4 pg (28.0-33.3); Mean Corpuscular Volume 97.3 fL (83.0-100.0); Mean Platelet Volume 9.9 fL (9.4-12.4); Monocytes # 0.1 K/mcL (0.0-1.3); Nucleated Red Blood Cells 1.5 /100 WBC (0); Platelet Count 245 K/mcL (140-400); Segmented Neutrophils % 90.9 %; White Blood Count 3.3 K/mcL (4.3-11.1)
[2020-04-19] MEDS ORDERED: Furosemide 40 MG/4 ML VIAL IVP ONE (08:19)
[2020-04-19] MEDS: Dexamethasone 4 MG/ML VIAL IVP SCH (08:43)
[2020-04-19] MEDS: Azithromycin 500 MG in 0.9 % Sodium Chloride 250 ML IVPB SCH (08:43)
[2020-04-19] MEDS: Metoprolol XL (24 HR) Succ 50 MG TAB.ER.24H PO SCH (08:43)
[2020-04-19] MEDS: cefTRIAXone 1,000 MG in Water for inj. (sterile) 10 ML IVP SCH (08:43)
[2020-04-19] MEDS ORDERED: Spironolactone 25 MG TABLET PO SCH (09:00)
[2020-04-19] MEDS: Dexmedetomidine HCl 400 MCG/100 ML MLS IVC SCH (15:02)
[2020-04-19] MEDS ORDERED: Acetaminophen 325 MG TABLET PO PRN (16:25)
[2020-04-19] MEDS: *HR* OxyCODONE/APAP 5/325 TABLET PO PRN ×2 (16:59→23:00)
[2020-04-20] MEDS ORDERED: 0.9 % Sodium Chloride 250 ML ONE (00:25)
[2020-04-20] MEDS ORDERED: *HR* Enoxaparin 40 MG/0.4 ML SYRINGE SQ SCH (06:00)
[2020-04-20] MEDS ORDERED: *HR* LORazepam 2 MG/ML VIAL IVP ONE ×2 (06:17→08:35)
[2020-04-20] MEDS: *HR* OxyCODONE/APAP 5/325 TABLET PO PRN (06:29)
[2020-04-20] MEDS ORDERED: *HR* LORazepam 2 MG/ML VIAL ONE (08:38)
[2020-04-20] MEDS ORDERED: Furosemide 40 MG/4 ML VIAL ONE (08:53)
[2020-04-20] MEDS ORDERED: Furosemide 40 MG/4 ML VIAL IVP ONE (08:54)
[2020-04-20] MEDS: Dexamethasone 4 MG/ML VIAL IVP SCH (10:21)
[2020-04-20] MEDS: cefTRIAXone 1,000 MG in Water for inj. (sterile) 10 ML IVP SCH (10:22)
[2020-04-20] MEDS: Azithromycin 500 MG in 0.9 % Sodium Chloride 250 ML IVPB SCH (10:29)
[2020-04-20] MEDS: Metoprolol XL (24 HR) Succ 50 MG TAB.ER.24H PO SCH (10:53)
[2020-04-20] MEDS: Dexmedetomidine HCl 400 MCG/100 ML MLS IVC SCH (10:55)
[2020-04-20 14:44] LABS: Hematocrit 33.1 % (35.3-44.9); Hemoglobin 10.6 g/dL (11.5-15.4); Immature Granulocytes % 1.2 % (0-4); Lymphocytes # 0.1 K/mcL (0.6-4.6); Lymphocytes % 0.9 %; Mean Corpuscular Hemoglobin 31.1 pg (28.0-33.3); Mean Corpuscular Volume 97.1 fL (83.0-100.0); Mean Platelet Volume 10.4 fL (9.4-12.4); Monocytes # 0.1 K/mcL (0.0-1.3); Monocytes % 0.7 %; Nucleated Red Blood Cells 0.3 /100 WBC (0); Platelet Count 219 K/mcL (140-400); Red Blood Count 3.41 M/mcL (3.82-4.97); Red Cell Distribution Width 16.7 % (11.5-14.5); Segmented Neutrophils % 97.2 %
[2020-04-20 14:48] LABS: Neutrophils # 8.9 K/mcL (1.6-8.9); White Blood Count 9.1 K/mcL (4.3-11.1)
[2020-04-20 15:05] LABS: BUN/Creatinine Ratio 43 (6-26); Blood Urea Nitrogen 40 mg/dL (8-23); Calcium 8.6 mg/dL (8.6-10.3); Carbon Dioxide 27 mEq/L (23-29); Chloride 102 mEq/L (98-107); Glucose 115 mg/dL (70-105); Osmolality,Calculated 303 (280-300); Potassium 3.3 mEq/L (3.5-5.1); Sodium 141 mEq/L (136-145); eGFR For African Americans > 60 (> 60); eGFR For Non-African Americans > 60 (> 60)
[2020-04-20 15:17] LABS: VBG HCO3 27 mEq/L (21-27); VBG PCO2 40 mmHg (41-51); VBG PH 7.44 pH Units (7.32-7.42); VBG PO2 72 mmHg (25-50)
[2020-04-20 15:19] LABS: D-Dimer 1918 ng/mLFEU (0-500)
[2020-04-20 15:22] LABS: Fibrinogen 740 mg/dL (169-393)
[2020-04-20 15:22] LABS: Hypersegmented Neutrophils Present (Not Present); Platelet Estimate Normal (Normal)
[2020-04-20] MEDS ORDERED: *HR* Heparin 5,000 UNIT/ML VIAL IVP PRN ×2 (15:52)
[2020-04-20] MEDS ORDERED: *HR* Heparin 5,000 UNIT/ML VIAL IVP ONE (15:52)
[2020-04-20 15:58] LABS: Folate > 22.3 ng/mL (3.0-16.0); Procalcitonin 0.55 ng/mL (0.00-0.15); Vitamin B12 677 pg/mL (250-1100)
[2020-04-20] MEDS: Morphine Sulfate 2 MG/ML SYRINGE IVP PRN ×2 (16:54→22:32)
[2020-04-20 17:20] LABS: Hematocrit 34.6 % (35.3-44.9); Hemoglobin 10.9 g/dL (11.5-15.4); Mean Corpuscular HGB Conc 31.5 g/dL (31.6-35.5); Mean Corpuscular Hemoglobin 30.5 pg (28.0-33.3); Mean Corpuscular Volume 96.9 fL (83.0-100.0); Mean Platelet Volume 10.5 fL (9.4-12.4); Platelet Count 229 K/mcL (140-400); Red Blood Count 3.57 M/mcL (3.82-4.97); Red Cell Distribution Width 16.3 % (11.5-14.5); White Blood Count 10.3 K/mcL (4.3-11.1)
[2020-04-20 18:42] LABS: Heparin anti-factor XA UFH 0.25 IU/mL (0.30-0.70)
[2020-04-20 18:43] LABS: INR 1.3; Prothrombin Time 14.5 Seconds (9.4-12.1)
[2020-04-20] MEDS: Heparin 25,000UNIT/250ML 1/2NS 25,000 UNIT/250 ML IV.SOLN IVC SCH (20:12)
[2020-04-21] MEDS: Dexmedetomidine HCl 400 MCG/100 ML MLS IVC SCH ×2 (02:58→12:16)
[2020-04-21 03:10] LABS: Hematocrit 33.5 % (35.3-44.9); Hemoglobin 10.2 g/dL (11.5-15.4); Mean Corpuscular HGB Conc 30.4 g/dL (31.6-35.5); Mean Corpuscular Hemoglobin 29.7 pg (28.0-33.3); Mean Corpuscular Volume 97.7 fL (83.0-100.0); Mean Platelet Volume 11.1 fL (9.4-12.4); Nucleated Red Blood Cells 0.2 /100 WBC (0); Platelet Count 223 K/mcL (140-400); Red Blood Count 3.43 M/mcL (3.82-4.97); Red Cell Distribution Width 16.4 % (11.5-14.5); White Blood Count 8.7 K/mcL (4.3-11.1)
[2020-04-21 03:15] LABS: BUN/Creatinine Ratio 52 (6-26); Blood Urea Nitrogen 38 mg/dL (8-23); Calcium 8.6 mg/dL (8.6-10.3); Carbon Dioxide 23 mEq/L (23-29); Chloride 104 mEq/L (98-107); Glucose 106 mg/dL (70-105); Osmolality,Calculated 299 (280-300); Potassium 3.9 mEq/L (3.5-5.1); Sodium 140 mEq/L (136-145); eGFR For African Americans > 60 (> 60); eGFR For Non-African Americans > 60 (> 60)
[2020-04-21 03:51] LABS: Lymphocytes # 0.4 K/mcL (0.6-4.6); Neutrophils # 8.4 K/mcL (1.6-8.9)
[2020-04-21 03:52] LABS: Anisocytosis 1+ (Not Present); Platelet Estimate Normal (Normal); Polychromasia 1+ (Not Present)
[2020-04-21] MEDS: Morphine Sulfate 2 MG/ML SYRINGE IVP PRN ×2 (04:54→15:26)
[2020-04-21] MEDS: cefTRIAXone 1,000 MG in Water for inj. (sterile) 10 ML IVP SCH (07:51)
[2020-04-21] MEDS: Metoprolol XL (24 HR) Succ 50 MG TAB.ER.24H PO SCH (07:52)
[2020-04-21] MEDS: Dexamethasone 4 MG/ML VIAL IVP SCH (07:52)
[2020-04-21] MEDS: Azithromycin 500 MG in 0.9 % Sodium Chloride 250 ML IVPB SCH (07:55)
[2020-04-21] MEDS: Spironolactone 25 MG TABLET PO SCH (15:25)
[2020-04-21] MEDS: Furosemide 40 MG/4 ML VIAL IVP SCH (15:26)
[2020-04-22] MEDS: Dexmedetomidine HCl 400 MCG/100 ML MLS IVC SCH ×2 (00:11→14:50)
[2020-04-22 01:34] LABS: Hematocrit 34.1 % (35.3-44.9); Hemoglobin 10.3 g/dL (11.5-15.4); Immature Granulocytes % 0.5 % (0-4); Lymphocytes # 0.3 K/mcL (0.6-4.6); Lymphocytes % 3.7 %; Mean Corpuscular HGB Conc 30.2 g/dL (31.6-35.5); Mean Corpuscular Hemoglobin 30.3 pg (28.0-33.3); Mean Corpuscular Volume 100.3 fL (83.0-100.0); Mean Platelet Volume 11.2 fL (9.4-12.4); Monocytes # 0.1 K/mcL (0.0-1.3); Monocytes % 1.3 %; Neutrophils # 7.5 K/mcL (1.6-8.9); Platelet Count 233 K/mcL (140-400); Red Cell Distribution Width 16.2 % (11.5-14.5); Segmented Neutrophils % 94.5 %; White Blood Count 7.9 K/mcL (4.3-11.1)
[2020-04-22 01:40] LABS: BUN/Creatinine Ratio 49 (6-26); Blood Urea Nitrogen 37 mg/dL (8-23); Carbon Dioxide 23 mEq/L (23-29); Chloride 104 mEq/L (98-107); Glucose 133 mg/dL (70-105); Magnesium 2.4 mg/dL (1.6-2.6); Osmolality,Calculated 297 (280-300); Sodium 138 mEq/L (136-145); eGFR For African Americans > 60 (> 60); eGFR For Non-African Americans > 60 (> 60)
[2020-04-22] MEDS: Dexamethasone 4 MG/ML VIAL IVP SCH (09:04)
[2020-04-22] MEDS: cefTRIAXone 1,000 MG in Water for inj. (sterile) 10 ML IVP SCH (09:04)
[2020-04-22] MEDS: Metoprolol XL (24 HR) Succ 50 MG TAB.ER.24H PO SCH (09:05)
[2020-04-22] MEDS: Spironolactone 25 MG TABLET PO SCH (09:05)
[2020-04-22] MEDS: Azithromycin 500 MG in 0.9 % Sodium Chloride 250 ML IVPB SCH (09:05)
[2020-04-22] MEDS: Furosemide 40 MG/4 ML VIAL IVP SCH (09:06)
[2020-04-22] MEDS: Heparin 25,000UNIT/250ML 1/2NS 25,000 UNIT/250 ML IV.SOLN IVC SCH ×2 (09:11→16:55)
[2020-04-22] MEDS: Ipratropium 1 PUFF INHALER IH SCH ×2 (16:38→20:06)
[2020-04-23 02:33] LABS: Basophils % 0.2 %; Hematocrit 35.8 % (35.3-44.9); Hemoglobin 11.1 g/dL (11.5-15.4); Immature Granulocytes % 0.3 % (0-4); Lymphocytes # 0.2 K/mcL (0.6-4.6); Lymphocytes % 3.5 %; Mean Corpuscular Hemoglobin 30.5 pg (28.0-33.3); Mean Corpuscular Volume 98.4 fL (83.0-100.0); Mean Platelet Volume 12.2 fL (9.4-12.4); Monocytes # 0.3 K/mcL (0.0-1.3); Neutrophils # 5.7 K/mcL (1.6-8.9); Platelet Count 258 K/mcL (140-400); Red Blood Count 3.64 M/mcL (3.82-4.97); Red Cell Distribution Width 15.9 % (11.5-14.5); White Blood Count 6.2 K/mcL (4.3-11.1)
[2020-04-23 02:49] LABS: BUN/Creatinine Ratio 72 (6-26); Blood Urea Nitrogen 44 mg/dL (8-23); Calcium 8.1 mg/dL (8.6-10.3); Carbon Dioxide 24 mEq/L (23-29); Chloride 102 mEq/L (98-107); Glucose 139 mg/dL (70-105); Magnesium 2.4 mg/dL (1.6-2.6); Osmolality,Calculated 301 (280-300); Potassium 3.9 mEq/L (3.5-5.1); Sodium 139 mEq/L (136-145); eGFR For African Americans > 60 (> 60); eGFR For Non-African Americans > 60 (> 60)
[2020-04-23 02:51] LABS: D-Dimer 1647 ng/mLFEU (0-500)
[2020-04-23 02:52] LABS: Fibrinogen 740 mg/dL (169-393)
[2020-04-23] MEDS: Dexmedetomidine HCl 400 MCG/100 ML MLS IVC SCH ×2 (03:17→13:36)
[2020-04-23] MEDS: Ipratropium 1 PUFF INHALER IH SCH ×4 (04:05→21:32)
[2020-04-23] MEDS: Dexamethasone 4 MG/ML VIAL IVP SCH (08:35)
[2020-04-23] MEDS: Metoprolol XL (24 HR) Succ 50 MG TAB.ER.24H PO SCH (08:35)
[2020-04-23] MEDS: Azithromycin 250 MG TABLET PO SCH (08:35)
[2020-04-23] MEDS: Spironolactone 25 MG TABLET PO SCH (08:35)
[2020-04-23] MEDS: Furosemide 40 MG/4 ML VIAL IVP SCH (08:36)
[2020-04-23] MEDS: *HR* OxyCODONE/APAP 5/325 TABLET PO PRN (14:31)
[2020-04-23] MEDS: Heparin 25,000UNIT/250ML 1/2NS 25,000 UNIT/250 ML IV.SOLN IVC SCH (14:31)
[2020-04-24] MEDS: Dexmedetomidine HCl 400 MCG/100 ML MLS IVC SCH ×2 (00:10→09:33)
[2020-04-24] MEDS: Ipratropium 1 PUFF INHALER IH SCH ×4 (04:32→21:55)
[2020-04-24] MEDS: Spironolactone 25 MG TABLET PO SCH (09:29)
[2020-04-24] MEDS: Azithromycin 250 MG TABLET PO SCH (09:29)
[2020-04-24] MEDS: Metoprolol XL (24 HR) Succ 50 MG TAB.ER.24H PO SCH (09:30)
[2020-04-24] MEDS: Furosemide 40 MG/4 ML VIAL IVP SCH (09:30)
[2020-04-24] MEDS: *HR* OxyCODONE/APAP 5/325 TABLET PO PRN ×2 (09:30→19:44)
[2020-04-24] MEDS: Dexamethasone 4 MG/ML VIAL IVP SCH (09:30)
[2020-04-24 10:24] LABS: BUN/Creatinine Ratio 74 (6-26); Blood Urea Nitrogen 46 mg/dL (8-23); Calcium 8.3 mg/dL (8.6-10.3); Carbon Dioxide 22 mEq/L (23-29); Chloride 101 mEq/L (98-107); Glucose 100 mg/dL (70-105); Magnesium 2.4 mg/dL (1.6-2.6); Osmolality,Calculated 296 (280-300); Potassium 3.9 mEq/L (3.5-5.1); Sodium 137 mEq/L (136-145); eGFR For African Americans > 60 (> 60); eGFR For Non-African Americans > 60 (> 60)
[2020-04-24 12:02] LABS: Basophils % 0.3 %; Eosinophils # 0.1 K/mcL (0.0-0.6); Eosinophils % 0.7 %; Hematocrit 40.4 % (35.3-44.9); Hemoglobin 13.2 g/dL (11.5-15.4); Immature Granulocytes % 1.5 % (0-4); Lymphocytes # 0.4 K/mcL (0.6-4.6); Lymphocytes % 3.3 %; Mean Corpuscular HGB Conc 32.7 g/dL (31.6-35.5); Mean Corpuscular Hemoglobin 29.9 pg (28.0-33.3); Mean Corpuscular Volume 91.6 fL (83.0-100.0); Mean Platelet Volume 12.4 fL (9.4-12.4); Monocytes # 0.3 K/mcL (0.0-1.3); Monocytes % 2.4 %; Neutrophils # 11.3 K/mcL (1.6-8.9); Platelet Count 412 K/mcL (140-400); Red Blood Count 4.41 M/mcL (3.82-4.97); Red Cell Distribution Width 15.6 % (11.5-14.5); Segmented Neutrophils % 91.8 %; White Blood Count 12.3 K/mcL (4.3-11.1)
[2020-04-24] MEDS: Heparin 25,000UNIT/250ML 1/2NS 25,000 UNIT/250 ML IV.SOLN IVC SCH ×2 (16:06→16:37)
[2020-04-24] MEDS: Piperacillin/Tazobactam 3.375 GM in 0.9 % Sodium Chloride Mini Bag 100 ML IVPB SCH ×2 (16:07→23:55)
[2020-04-24] MEDS ORDERED: Doxycycline 100 MG in 0.9 % Sodium Chloride Mini Bag 100 ML IVPB SCH (18:00)
[2020-04-24] MEDS: Doxycycline 100 MG CAPSULE PO SCH (19:39)
[2020-04-24] MEDS: Morphine Sulfate 2 MG/ML SYRINGE IVP PRN (23:54)
[2020-04-25] MEDS: Dexmedetomidine HCl 400 MCG/100 ML MLS IVC SCH (00:08)
[2020-04-25] MEDS: Ipratropium 1 PUFF INHALER IH SCH ×4 (03:53→22:22)
[2020-04-25] MEDS: *HR* OxyCODONE/APAP 5/325 TABLET PO PRN ×2 (04:02→10:55)
[2020-04-25 06:34] LABS: Basophils % 0.2 %; Eosinophils % 0.4 %; Hematocrit 39.1 % (35.3-44.9); Hemoglobin 12.5 g/dL (11.5-15.4); Immature Granulocytes % 1.1 % (0-4); Lymphocytes # 0.4 K/mcL (0.6-4.6); Lymphocytes % 3.9 %; Mean Corpuscular Hemoglobin 29.6 pg (28.0-33.3); Mean Corpuscular Volume 92.4 fL (83.0-100.0); Mean Platelet Volume 12.1 fL (9.4-12.4); Monocytes # 0.3 K/mcL (0.0-1.3); Platelet Count 420 K/mcL (140-400); Red Blood Count 4.23 M/mcL (3.82-4.97); Red Cell Distribution Width 15.6 % (11.5-14.5); Segmented Neutrophils % 91.4 %; White Blood Count 9.9 K/mcL (4.3-11.1)
[2020-04-25 06:38] LABS: Fibrinogen 652 mg/dL (169-393)
[2020-04-25 06:40] LABS: D-Dimer 2178 ng/mLFEU (0-500)
[2020-04-25 06:54] LABS: BUN/Creatinine Ratio 62 (6-26); Blood Urea Nitrogen 41 mg/dL (8-23); Carbon Dioxide 22 mEq/L (23-29); Chloride 101 mEq/L (98-107); Glucose 84 mg/dL (70-105); Magnesium 2.4 mg/dL (1.6-2.6); Osmolality,Calculated 295 (280-300); Potassium 3.8 mEq/L (3.5-5.1); Sodium 138 mEq/L (136-145); eGFR For African Americans > 60 (> 60); eGFR For Non-African Americans > 60 (> 60)
[2020-04-25] MEDS: Piperacillin/Tazobactam 3.375 GM in 0.9 % Sodium Chloride Mini Bag 100 ML IVPB SCH ×3 (07:37→23:08)
[2020-04-25] MEDS: Furosemide 40 MG/4 ML VIAL IVP SCH ×2 (07:39→16:45)
[2020-04-25] MEDS: Metoprolol XL (24 HR) Succ 50 MG TAB.ER.24H PO SCH (07:40)
[2020-04-25] MEDS: Doxycycline 100 MG CAPSULE PO SCH (07:40)
[2020-04-25] MEDS: Dexamethasone 4 MG/ML VIAL IVP SCH (07:40)
[2020-04-25] MEDS ORDERED: *HR* Metoprolol 5 MG/5 ML VIAL IVP ONE (12:10)
[2020-04-25] MEDS: *HR* Enoxaparin 40 MG/0.4 ML SYRINGE SQ SCH (13:22)
[2020-04-25] MEDS: Morphine Sulfate 2 MG/ML SYRINGE IVP PRN (20:49)
[2020-04-25] MEDS: Lactobacillus 1 EACH CAP.SPRINK PO SCH (20:50)
[2020-04-26] MEDS: Dexmedetomidine HCl 400 MCG/100 ML MLS IVC SCH ×2 (00:11→13:14)
[2020-04-26] MEDS: Morphine Sulfate 2 MG/ML SYRINGE IVP PRN ×2 (03:28→14:20)
[2020-04-26] MEDS: Ipratropium 1 PUFF INHALER IH SCH ×4 (04:02→22:05)
[2020-04-26 04:49] LABS: Basophils % 0.3 %; Eosinophils % 0.5 %; Hematocrit 43.7 % (35.3-44.9); Hemoglobin 13.8 g/dL (11.5-15.4); Immature Granulocytes % 2.3 % (0-4); Lymphocytes # 0.5 K/mcL (0.6-4.6); Lymphocytes % 6.1 %; Mean Corpuscular HGB Conc 31.6 g/dL (31.6-35.5); Mean Corpuscular Hemoglobin 29.7 pg (28.0-33.3); Mean Corpuscular Volume 94.2 fL (83.0-100.0); Monocytes # 0.2 K/mcL (0.0-1.3); Monocytes % 3.2 %; Neutrophils # 6.6 K/mcL (1.6-8.9); Platelet Count 445 K/mcL (140-400); Red Blood Count 4.64 M/mcL (3.82-4.97); Red Cell Distribution Width 15.7 % (11.5-14.5); Segmented Neutrophils % 87.6 %; White Blood Count 7.5 K/mcL (4.3-11.1)
[2020-04-26 04:53] LABS: Fibrinogen 633 mg/dL (169-393)
[2020-04-26 05:04] LABS: BUN/Creatinine Ratio 57 (6-26); Blood Urea Nitrogen 43 mg/dL (8-23); Calcium 8.4 mg/dL (8.6-10.3); Carbon Dioxide 23 mEq/L (23-29); Chloride 98 mEq/L (98-107); Glucose 96 mg/dL (70-105); Magnesium 2.2 mg/dL (1.6-2.6); Osmolality,Calculated 297 (280-300); Phosphorous 1.9 mg/dL (2.7-4.5); Potassium 3.6 mEq/L (3.5-5.1); Sodium 138 mEq/L (136-145); eGFR For African Americans > 60 (> 60); eGFR For Non-African Americans > 60 (> 60)
[2020-04-26 06:27] LABS: D-Dimer 1667 ng/mLFEU (0-500)
[2020-04-26] MEDS: *HR* Enoxaparin 40 MG/0.4 ML SYRINGE SQ SCH (06:52)
[2020-04-26] MEDS: Furosemide 40 MG/4 ML VIAL IVP SCH (07:52)
[2020-04-26] MEDS: Metoprolol XL (24 HR) Succ 50 MG TAB.ER.24H PO SCH (07:53)
[2020-04-26] MEDS: Piperacillin/Tazobactam 3.375 GM in 0.9 % Sodium Chloride Mini Bag 100 ML IVPB SCH ×2 (07:53→16:45)
[2020-04-26] MEDS: Lactobacillus 1 EACH CAP.SPRINK PO SCH ×2 (07:53→21:15)
[2020-04-26] MEDS: Dexamethasone 4 MG/ML VIAL IVP SCH (07:53)
[2020-04-27] MEDS: Piperacillin/Tazobactam 3.375 GM in 0.9 % Sodium Chloride Mini Bag 100 ML IVPB SCH ×3 (01:10→16:47)
[2020-04-27] MEDS: Dexmedetomidine HCl 400 MCG/100 ML MLS IVC SCH ×4 (01:12→23:49)
[2020-04-27] MEDS: Ipratropium 1 PUFF INHALER IH SCH ×4 (02:49→22:16)
[2020-04-27] MEDS: Morphine Sulfate 2 MG/ML SYRINGE IVP PRN (03:30)
[2020-04-27] MEDS ORDERED: Haloperidol Lactate 5 MG/ML VIAL IVP ONE (06:21)
[2020-04-27] MEDS: *HR* Enoxaparin 40 MG/0.4 ML SYRINGE SQ SCH (06:27)
[2020-04-27] MEDS: Lactobacillus 1 EACH CAP.SPRINK PO SCH ×2 (08:00→21:33)
[2020-04-27] MEDS: Metoprolol XL (24 HR) Succ 50 MG TAB.ER.24H PO SCH (08:00)
[2020-04-27] MEDS: Dexamethasone 4 MG/ML VIAL IVP SCH (08:01)
[2020-04-27] MEDS ORDERED: Potassium Phosphate 44 MEQ in 0.9 % Sodium Chloride 250 ML IVPB ONE (08:50)
[2020-04-27] MEDS ORDERED: Furosemide 20 MG TABLET PO SCH (09:00)
[2020-04-27 10:19] LABS: INR 1.6; Prothrombin Time 17.8 Seconds (9.4-12.1)
[2020-04-27 10:20] LABS: Basophils # 0.1 K/mcL (0.0-0.2); Basophils % 0.5 %; Eosinophils % 0.2 %; Hematocrit 40.7 % (35.3-44.9); Immature Granulocytes % 2.3 % (0-4); Lymphocytes # 0.1 K/mcL (0.6-4.6); Lymphocytes % 1.2 %; Mean Corpuscular HGB Conc 31.9 g/dL (31.6-35.5); Mean Corpuscular Hemoglobin 29.8 pg (28.0-33.3); Mean Corpuscular Volume 93.3 fL (83.0-100.0); Monocytes % 2.2 %; Neutrophils # 10.5 K/mcL (1.6-8.9); Platelet Count 577 K/mcL (140-400); Red Blood Count 4.36 M/mcL (3.82-4.97); Red Cell Distribution Width 15.4 % (11.5-14.5); Segmented Neutrophils % 93.6 %; White Blood Count 11.2 K/mcL (4.3-11.1)
[2020-04-27 10:23] LABS: Monocytes # 0.3 K/mcL (0.0-1.3)
[2020-04-27 10:31] LABS: Alanine Aminotransferase 23 Units/L (7-52); Albumin 3.3 g/dL (3.5-5.7); Albumin/Globulin Ratio 1.1 (1.1-2.2); Alkaline Phosphatase 78 Units/L (34-104); Aspartate Amino Transferase 17 Units/L (13-39); BUN/Creatinine Ratio 52 (6-26); Bilirubin,Total 0.5 mg/dL (0.3-1.0); Blood Urea Nitrogen 43 mg/dL (8-23); C-Reactive Protein 104 mg/L (Less than 10); Calcium 7.8 mg/dL (8.6-10.3); Carbon Dioxide 20 mEq/L (23-29); Chloride 98 mEq/L (98-107); Globulin 2.9 g/dL (2.4-3.5); Glucose 280 mg/dL (70-105); Magnesium 2.1 mg/dL (1.6-2.6); Osmolality,Calculated 301 (280-300); Phosphorous 1.8 mg/dL (2.7-4.5); Potassium 3.2 mEq/L (3.5-5.1); Sodium 135 mEq/L (136-145); Total Protein 6.2 g/dL (6.4-8.9); eGFR For African Americans > 60 (> 60); eGFR For Non-African Americans > 60 (> 60)
[2020-04-27 10:38] LABS: Large Platelets Present (Not Present); Platelet Estimate Increased (Normal)
[2020-04-27 10:49] LABS: Ferritin 361 ng/mL (10-120)
[2020-04-27 10:54] LABS: Activated Partial Thrombo Time 28.4 Seconds (26.0-36.0)
[2020-04-27] MEDS: *HR* OxyCODONE/APAP 10/325 TABLET PO PRN ×2 (10:54→17:43)
[2020-04-27] MEDS: Baclofen 10 MG TABLET PO SCH (21:33)
[2020-04-28] MEDS: Piperacillin/Tazobactam 3.375 GM in 0.9 % Sodium Chloride Mini Bag 100 ML IVPB SCH ×2 (00:21→08:18)
[2020-04-28] MEDS: *HR* OxyCODONE/APAP 10/325 TABLET PO PRN ×2 (00:28→08:39)
[2020-04-28] MEDS: Ipratropium 1 PUFF INHALER IH SCH ×2 (04:20→11:48)
[2020-04-28] MEDS ORDERED: Haloperidol Lactate 5 MG/ML VIAL IVP ONE (05:03)
[2020-04-28] MEDS: *HR* Enoxaparin 40 MG/0.4 ML SYRINGE SQ SCH (05:22)
[2020-04-28] MEDS: Morphine Sulfate 2 MG/ML SYRINGE IVP PRN (05:24)
[2020-04-28] MEDS ORDERED: Dexmedetomidine HCl 400 MCG/100 ML MLS IVC SCH (06:10)
[2020-04-28] MEDS: Folic Acid 1 MG TABLET PO SCH ×2 (08:18→08:40)
[2020-04-28] MEDS: Lactobacillus 1 EACH CAP.SPRINK PO SCH ×2 (08:18→08:39)
[2020-04-28] MEDS: Dexamethasone 4 MG/ML VIAL IVP SCH (08:18)
[2020-04-28 08:38] LABS: Hematocrit 41.1 % (35.3-44.9); Hemoglobin 12.8 g/dL (11.5-15.4); Mean Corpuscular HGB Conc 31.1 g/dL (31.6-35.5); Mean Corpuscular Hemoglobin 29.2 pg (28.0-33.3); Mean Corpuscular Volume 93.6 fL (83.0-100.0); Platelet Count 746 K/mcL (140-400); Red Blood Count 4.39 M/mcL (3.82-4.97); Red Cell Distribution Width 15.5 % (11.5-14.5); White Blood Count 15.9 K/mcL (4.3-11.1)
[2020-04-28] MEDS: Baclofen 10 MG TABLET PO SCH ×2 (08:39→11:00)
[2020-04-28] MEDS: Metoprolol XL (24 HR) Succ 50 MG TAB.ER.24H PO SCH (08:40)
[2020-04-28] MEDS ORDERED: Ringers Solution, Lactated 1,000 ML ONE (08:50)
[2020-04-28] MEDS ORDERED: Ringers Solution, Lactated 500 ML IVC ONE (08:53)
[2020-04-28 08:56] LABS: BUN/Creatinine Ratio 41 (6-26); Blood Urea Nitrogen 43 mg/dL (8-23); Calcium 7.6 mg/dL (8.6-10.3); Carbon Dioxide 23 mEq/L (23-29); Chloride 99 mEq/L (98-107); Glucose 230 mg/dL (70-105); Magnesium 2.1 mg/dL (1.6-2.6); Osmolality,Calculated 302 (280-300); Phosphorous 3.8 mg/dL (2.7-4.5); Sodium 137 mEq/L (136-145); eGFR For African Americans > 60 (> 60); eGFR For Non-African Americans 52 (> 60)
[2020-04-28] MEDS ORDERED: SULFAMETHOXAZOLE IVPB SCH (09:30)
[2020-04-28] MEDS ORDERED: WATER IVPB SCH (09:30)
[2020-04-28] MEDS ORDERED: D5 IVPB SCH (09:30)
[2020-04-28] MEDS ORDERED: TRIMETH IVPB SCH (09:30)
[2020-04-28] MEDS ORDERED: *HR* FentaNYL (PF) 100 MCG/2 ML VIAL IVP ONE (10:30)
[2020-04-28] MEDS ORDERED: Atropine Sulfate 1% 40 DROP/2 ML BOTTLE SL PRN (11:36)
[2020-04-28] MEDS ORDERED: Haloperidol Lactate 5 MG/ML VIAL IVP PRN (11:38)
[2020-04-28] MEDS ORDERED: *HR* LORazepam 2 MG/ML VIAL IVP PRN (11:39)
[2020-04-28 11:40] VITALS: BP 106/87
[2020-04-28] MEDS ORDERED: Morphine Sulfate Oral CONC 10 MG/0.5 ML ORAL.SYG SL SCH (12:00)
[2020-04-28] MEDS: *HR* FentaNYL (PF) 100 MCG/2 ML VIAL IVP PRN ×2 (12:03→12:58)
[2020-04-29] MEDS ORDERED: Metoprolol XL (24 HR) Succ 50 MG TAB.ER.24H PO SCH (09:00)
== END 2020-04-28 17:00 | DRG 871 ==
LOC: EMEROOARM 07:27 → 2NENU 07:27 → SUATTDRO 09:45 → 2NENU 11:26
PROVIDERS: ADMIT Internal Medicine; ATTEND Internal Medicine